=== PATIENT | female | born 1980 | race Caucasian/White ===

== ENCOUNTER → 2017-05-17 | Outpatient (CLI) | payer OTHER ==
[~2017-05-17] MED LIST: ACET500T33 PO
--- NOTE | 2017-05-18 09:49 | RAD ---
PA and lateral chest radiographs 05/17/2017. Clinical History: Left-sided chest pain.. PA and lateral digital radiographs of the chest were obtained. Comparison study is dated 09/05/2013.. The cardiac and mediastinal silhouettes are within normal limits in size and configuration. No pulmonary infiltrate is seen. No pleural effusion or pneumothorax is noted. The osseous structures are grossly intact. Surgical clips are seen within the right upper quadrant abdomen consistent with a cholecystectomy. Impression: No radiographic evidence of active cardiopulmonary disease.
== END | disposition home or self-care (01) ==
LOC: RAD 16:58
PROVIDERS: ATTEND Nurse Practitioner Family
DX: R07.9 Chest pain, unspecified (principal); R06.02 Shortness of breath
CPT/HCPCS: 71020

== ENCOUNTER → 2017-05-17 | Outpatient (CLI) | payer OTHER | END | disposition home or self-care (01) | LOC: LAB 16:52 | PROVIDERS: ATTEND Nurse Practitioner Family | DX: R06.02 Shortness of breath (principal) | CPT/HCPCS: 36415; 85379 ==

== ENCOUNTER → 2017-06-03 | Outpatient (CLI) | payer OTHER ==
--- NOTE | 2017-06-03 15:34 | RAD ---
Examination: 3 views of the thoracic spine History: History of upper back pain Comparison: None available Findings: Evaluation of the upper thoracic spine is somewhat limited due to overlapping soft tissue. The vertebral body heights are maintained. No obvious listhesis identified. Impression: No acute osseous findings.
--- NOTE | 2017-06-03 15:48 | RAD ---
Examination: 3 views of the cervical spine History: History of upper back pain. Compression: None available Findings: The vertebral body heights are maintained. No evidence of listhesis. No evidence of prevertebral soft tissue swelling. The facets are well aligned. The lateral masses of C1 are aligned with C2 vertebra. The C2 dens appears intact. Impression: 1. No acute osseous findings.
== END | disposition home or self-care (01) ==
LOC: DXRADRC 14:28
PROVIDERS: ATTEND Nurse Practitioner Family
DX: M54.2 Cervicalgia (principal); M54.6 Pain in thoracic spine
CPT/HCPCS: 72040; 72072

== ENCOUNTER → 2017-11-11 | Outpatient (CLI) | payer OTHER ==
--- NOTE | 2017-11-14 09:28 | RAD ---
DATE: 11/11/2017 EXAM: MAMMO SO SCREENING BILATERAL HISTORY: Routine screening COMPARISON: 08/24/2013 This study was interpreted with the benefit of Computerized Aided Detection (CAD). FINDINGS: Breast Density: HETERO The breast parenchyma Is heterogeneouslyy dense, which could reduce sensitivity of mammography. Breast parenchyma level C. There are no dominant suspicious masses, suspicious microcalcifications or evidence of architectural distortion. Bilateral breast prosthesis are intact and similar to prior exam. Intramammary lymph nodes identified in the left breast. IMPRESSION: Benign findings BI-RADS CATEGORY: 2 BENIGN FINDING RECOMMENDED FOLLOW-UP: 12M 12 MONTH FOLLOW-UP PQRS compliance statement: Patient information was entered into a reminder system with a target due date 11/11/2018 for the next mammogram. Mammography is a sensitive method for finding small breast cancers, but it does not detect them all and is not a substitute for careful clinical examination. A negative mammogram does not negate a clinically suspicious finding and should not result in delay in biopsying a clinically suspicious abnormality. "Our facility is accredited by the [employer] Mammography Program."
== END | disposition home or self-care (01) ==
LOC: MAMMO 13:30
PROVIDERS: ATTEND Plastic Surgery
DX: Z12.31 Encounter for screening mammogram for malignant neoplasm of breast (principal)
CPT/HCPCS: 77063; 77067

== ENCOUNTER 2020-05-14 15:20 | Emergency (ER) | payer BC, OTHER ==
[~2020-05-14] VITALS: Ht 160 cm; Wt 64.9 kg
--- NOTE | 2020-05-14 16:29 | PHYS DOC ---
Past History Past Medical History: Anxiety, Kidney Stones, Ovarian Cyst Past Surgical History: Cholecystectomy, Tonsillectomy Additional Past Surgical Histo: BREAST IMPLANTS Smoking: Non-smoker Alcohol Use: Occasionally Drug Use: None General Adult EDM: Chief Complaint: DIZZY/LIGHT HEADED HPI: HPI: 39-year-old female presents with dizzy spells. The patient has been having intermittent dizzy spells which she describes as a sudden overwhelming feeling like she might pass out. These only last for a few seconds. She has not had a syncopal event. Patient admits to having some fairly drastic changes in her diet going on the keto diet about the time these spells started. She stopped that diet on Tuesday and continues to have these episodes 3 days later. She decided she is tired of it want to come in for evaluation to make sure is not something serious. The patient also admits to having anxiety for which she does not take any medication. Her blood pressure has also been elevated lately. She denies fever or chills. She has possible COVID-19 exposures, but they are fairly remote and second-level exposures, no direct exposure to confirmed case. Review of Systems: Review of Systems: Constitutional: Denies fever or chills Eyes: Denies change in visual acuity HENT: Denies nasal congestion or sore throat Respiratory: Denies cough or shortness of breath Cardiovascular: Denies chest pain or edema GI: Denies abdominal pain, nausea, vomiting, bloody stools or diarrhea : Denies dysuria Musculoskeletal: Denies back pain or joint pain Integument: Denies rash Neurologic: Denies headache, focal weakness or sensory changes Endocrine: Denies polyuria or polydipsia Lymphatic: Denies swollen glands Psychiatric: Denies depression or anxiety Heart Score: Risk Factors: Risk Factors: DM, Current or recent (<one month) smoker, HTN, HLP, family history of CAD, obesity. Risk Scores: Score 0 - 3: 2.5% MACE over next 6 weeks - Discharge Home Score 4 - 6: 20.3% MACE over next 6 weeks - Admit for Clinical Observation Score 7 - 10: 72.7% MACE over next 6 weeks - Early Invasive Strategies Allergies: Allergies: Allergies Coded Allergies Type Severity Reaction Last Updated Verified Iodinated Contrast Media Allergy Unknown 05/14/20 Yes ceftriaxone sodium Allergy Unknown 05/14/20 Yes metoclopramide HCl Allergy Unknown 05/14/20 Yes Physical Exam: PE: Constitutional: Well developed, well nourished, no acute distress, non-toxic appearance. [] HENT: Normocephalic, atraumatic, bilateral external ears normal, oropharynx moist, no oral exudates, nose normal. [] Eyes: PERRLA, EOMI, conjunctiva normal, no discharge. [] Neck: Normal range of motion, no tenderness, supple, no stridor. [] Cardiovascular: Heart rate 110, regular rhythm, no murmur [] Lungs & Thorax: Bilateral breath sounds clear to auscultation [] Abdomen: Bowel sounds normal, soft, no tenderness, no masses, no pulsatile masses. [] Skin: Warm, dry, no erythema, no rash. [] Back: No tenderness, no CVA tenderness. [] Extremities: No tenderness, no cyanosis, no clubbing, ROM intact, no edema. [] Neurologic: Alert and oriented X 3, normal motor function, normal sensory function, no focal deficits noted. [] Psychologic: Affect normal, judgement normal, mood anxious. [] Current Patient Data: Vital Signs: Vital Signs Date Time Temp Pulse Resp B/P (MAP) Pulse Ox O2 Delivery O2 Flow Rate FiO2 05/14/20 15:44 98.7 107 18 151/95 (113) 99 Room Air EKG: EKG: Sinus tachycardia, rate 102, rightward axis, no ST elevation or depression. [] Radiology/Procedures: Radiology/Procedures: [] Impressions: CHEST AP ONLY History: Reason: SOB / Spl. Instructions: / History: Comparison: May 17, 2017 Findings: No consolidation or pleural effusion. Normal heart size. No pneumothorax. Impression: 1. No acute cardiopulmonary process. Electronically signed by: Koko Langston DO (05/14/2020 4:43 PM) [facility] DICTATED AND SIGNED BY: KOKO LANGSTON DO DATE: 05/14/20 618 CC: KRYSTINA MONTELONGO DO; ANTONY SHELLEY ~ Course & Med Decision Making: Course & Med Decision Making Pertinent Labs and Imaging studies reviewed. (See chart for details) The patient's chest x-ray is unremarkable. Her EKG is unremarkable. Her tr oponin is negative. Her labs are unremarkable. Her COVID-19 test is pending. I suspect her symptoms are combination of her significant dietary changes and anxiety. I will see any evidence of a life-threatening medical condition at this time. She is stable for discharge. [] Lili Disclaimer: Lili Disclaimer: This electronic medical record was generated, in whole or in part, using a voice recognition dictation system. Departure Departure: Impression: Primary Impression: Dizziness Disposition: 01 HOME/RESIDENCE PRIOR TO ADM Condition: STABLE Referrals: ANTONY SHELLEY (PCP) Patient Instructions: Dizziness, [id number] Justification of Admission: Justification of Admission: Justification of Admission Dx: N/A KRYSTINA MONTELONGO DO May 14, 2020 16:29
[2020-05-14] MEDS: IV RINGERS SOLUTION,LACTATED 1,000 ML IV ONE (16:35)
[2020-05-14 16:38] LABS: BASO % 1 % (0-3); EOS % 1 % (0-3); HEMATOCRIT 40.5 % (36.0-47.0); HEMOGLOBIN 13.6 g/dL (12.0-15.5); LYMPH # 1.5 x10^3/uL (1.0-4.8); LYMPH % 28 % (24-48); MEAN CORPUSCULAR HEMOGLOBIN 32 pg (25-35); MEAN CORPUSCULAR HGB CONC 34 g/dL (31-37); MEAN CORPUSCULAR VOLUME 94 fL (79-100); MONO # 0.5 x10^3/uL (0.0-1.1); MONO % 9 % (0-9); NEUT # 3.4 x10^3uL (1.8-7.7); NEUT % 62 % (31-73); PLATELET COUNT 198 x10^3/uL (140-400); RED BLOOD COUNT 4.29 x10^6/uL (3.50-5.40); RED CELL DISTRIBUTION WIDTH 12.3 % (11.5-14.5); WHITE BLOOD COUNT 5.5 x10^3/uL (4.0-11.0)
[2020-05-14 16:41] LABS: CALCIUM 8.8 mg/dL (8.5-10.1); CREATININE 0.8 mg/dL (0.6-1.0); GFR 79.9; POTASSIUM 3.7 mmol/L (3.5-5.1)
--- NOTE | 2020-05-14 16:46 | RAD ---
CHEST AP ONLY History: Reason: SOB / Spl. Instructions: / History: Comparison: May 17, 2017 Findings: No consolidation or pleural effusion. Normal heart size. No pneumothorax. Impression: 1. No acute cardiopulmonary process. Electronically signed by: Koko Daniels DO (05/14/2020 4:43 PM) [facility] [place]
[2020-05-14 16:47] LABS: ALBUMIN 4.1 g/dL (3.4-5.0); ALBUMIN/GLOBULIN RATIO 1.3 (1.0-1.7); TOTAL BILIRUBIN 0.7 mg/dL (0.2-1.0); TOTAL PROTEIN 7.3 g/dL (6.4-8.2)
[2020-05-14 17:45] VITALS: BP 128/83
--- NOTE | 2020-05-14 18:11 | EKG ---
[address] [address] Test Date: 2020-05-14 Test Time: 15:59:29 Pat Name: ASHLI LOUIS Department: Room: Gender: F Manager Ob: : 1980 Requested By: KRYSTINA MONTELONGO Order Number: [id number] Reading MD: Measurements Intervals [place] Rate: 102 P: -90 NE: 128 QRS: 108 QRSD: 82 T: 146 QT: 334 QTc: 439 Interpretive Statements SINUS TACHYCARDIA RIGHTWARD AXIS QRS(T) CONTOUR ABNORMALITY CONSISTENT WITH HIGH LATERAL INFARCT AGE UNDETERMINED ABNORMAL ECG RI6.02 No previous ECG available for comparison
--- NOTE | 2020-05-16 15:04 | NUR ---
IP: notified patient of COVID result.
== END 2020-05-14 17:48 | disposition home or self-care (01) ==
LOC: ER 15:20
DX: R42 Dizziness and giddiness (principal); Z20.828 Contact with and (suspected) exposure to other viral communicable diseases; F41.9 Anxiety disorder, unspecified; Z87.442 Personal history of urinary calculi; Z90.49 Acquired absence of other specified parts of digestive tract; Z88.1 Allergy status to other antibiotic agents; Z88.8 Allergy status to other drugs, medicaments and biological substances
CPT/HCPCS: 36415; 71045; 80053; 84484; 85025; 93005; 96360; 99285; J7120; U0003

== ENCOUNTER → 2020-07-28 | Outpatient (CLI) | payer BC, OTHER ==
--- NOTE | 2020-07-29 16:52 | RAD ---
DATE: 07/28/2020 1:35 PM EXAM: MAMMO SO SCREENING BILATERAL HISTORY: Screening COMPARISON: 11/11/2017 Bilateral CC and MLO views of the breasts were performed. Bilateral breast tomosynthesis was performed in CC and MLO projections. This study was interpreted with the benefit of Computerized Aided Detection (CAD). FINDINGS: Breast Density: HETERO The breast parenchyma Is heterogeneously dense, which could reduce sensitivity of mammography. Breast parenchyma level C Bilateral retroglandular saline implants are redemonstrated. Stable nodular parenchymal pattern compatible benign cystic change. No suspicious masses, microcalcifications or architectural distortion is present to suggest malignancy in either breast. The visualized axillae are unremarkable. IMPRESSION: No mammographic evidence of malignancy. BI-RADS CATEGORY: 2 BENIGN FINDING(S) RECOMMENDED FOLLOW-UP: 12M 12 MONTH FOLLOW-UP Annual screening mammography is recommended, unless clinically indicated sooner based on symptoms or change in physical exam. PQRS compliance statement: Patient information was entered into a reminder system with a target due date for the next mammogram. Mammography is a sensitive method for finding small breast cancers, but it does not detect them all and is not a substitute for careful clinical examination. A negative mammogram does not negate a clinically suspicious finding and should not result in delay in biopsying a clinically suspicious abnormality. "Our facility is accredited by the [employer] Mammography Program."
== END ==
LOC: MAMMO 13:14
PROVIDERS: ATTEND Physician Assistant Medical
DX: Z12.31 Encounter for screening mammogram for malignant neoplasm of breast (principal)
CPT/HCPCS: 77063; 77067